=== PATIENT | female | born 1970 | race Two or more races ===

== ENCOUNTER → 2018-10-24 | Outpatient (CLI) | payer OTHER ==
[~2018-10-24] MED LIST: AMITRIPTYLINE H10 MG; AMITRIPTYLINE H10 MG PO; AMITRIPTYLINE H25 MG PO; COUMADIN2 MG; COUMADIN2 MG PO; IMODIUM A-D2 MG PO; LIDODERM30 EA TP; METOPROLOL SUCC25 MG; NEURONTIN PO; NEURONTIN300 MG; OXYCONTIN10 M1 PO; PEPCID20 MG PO; PEPCID40 MG PO; SENOKOT TAB1 TAB PO; TAMOXIFEN CITRA20 MG; TOPROL XL25 M1 PO; TRAM1TAB98 PO; ZOFRAN4 MG PO; ZOFRAN8 MG PO
== END | disposition home or self-care (01) ==
LOC: NUCLEAR 12:41
DX: I25.10 Atherosclerotic heart disease of native coronary artery without angina pectoris (principal); R79.89 Other specified abnormal findings of blood chemistry
CPT/HCPCS: 78472; 78496; A9560

== ENCOUNTER 2018-11-14 13:44 | Emergency (ER) | payer OTHER ==
[~2018-11-14] VITALS: Ht 167.6 cm; Wt 113.4 kg
== END 2018-11-14 17:55 | disposition home or self-care (01) ==
LOC: ER 13:44
DX: H53.8 Other visual disturbances (principal)

== ENCOUNTER 2019-06-13 14:30 | Outpatient (CLI) | payer OTHER | END 2019-06-13 14:35 | disposition home or self-care (01) | LOC: RAD 14:30 | DX: C79.51 Secondary malignant neoplasm of bone (principal) ==

== ENCOUNTER 2020-12-04 09:22 | Emergency (ER) | payer OTHER ==
[~2020-12-04] VITALS: Ht 162.6 cm; Wt 117.9 kg
[2020-12-04] MEDS ORDERED: PLAVIX75 MG (09:42)
[2020-12-04] MEDS ORDERED: LOSARTAN-HCTZ1 EACH (09:46)
[2020-12-04] MEDS ORDERED: FEMARA2.5 MG (09:46)
[2020-12-04] MEDS ORDERED: KISQALI1 EAC1 (09:47)
[2020-12-04] MEDS ORDERED: MUCINEX600 MG (09:50)
[2020-12-04] MEDS ORDERED: NEBUSAL4 M1 (09:51)
== END 2020-12-04 14:56 | disposition home or self-care (01) ==
LOC: ER 09:22
DX: J20.9 Acute bronchitis, unspecified (principal); Z03.818 Encounter for observation for suspected exposure to other biological agents ruled out

== ENCOUNTER → 2021-02-08 | Outpatient (CLI) | payer OTHER ==
[~2021-02-08] MED LIST changes: +FEMARA2.5 MG; +KISQALI1 EAC1; +LOSARTAN-HCTZ1 EACH; +MUCINEX600 MG; +NEBUSAL4 M1; +PLAVIX75 MG
== END | disposition home or self-care (01) ==
LOC: NUCLEAR 07:17
PROVIDERS: ATTEND Internal Medicine Hematology & Oncology
DX: C50.412 Malignant neoplasm of upper-outer quadrant of left female breast (principal); C79.51 Secondary malignant neoplasm of bone
CPT/HCPCS: 78815; A9552

== ENCOUNTER 2021-03-22 10:10 | Outpatient (CLI) | payer OTHER | END 2021-03-22 10:11 | disposition home or self-care (01) | LOC: NUCLEAR 10:10 | PROVIDERS: ATTEND Internal Medicine Cardiovascular Disease | DX: I50.1 Left ventricular failure, unspecified (principal) ==

== ENCOUNTER 2021-05-02 21:25 | Emergency (ER) | payer OTHER ==
[~2021-05-02] VITALS: Ht 167.6 cm; Wt 105.7 kg
[2021-05-02] MEDS ORDERED: TRAM1TAB98 (23:34)
[2021-05-02] MEDS ORDERED: ZOFRAN8 MG (23:35)
[2021-05-02] MEDS ORDERED: CANABIS (23:37)
[2021-05-03] MEDS ORDERED: MEDROLPACK PO (07:50)
== END 2021-05-03 08:14 | disposition home or self-care (01) ==
LOC: ER 21:25
DX: M54.50 Low back pain, unspecified (principal); D64.89 Other specified anemias; C79.9 Secondary malignant neoplasm of unspecified site

== ENCOUNTER 2021-05-19 04:49 | Day surgery (SDC) | payer OTHER ==
[~2021-05-19 04:49] MED LIST changes: +ACID CONTROLLER20 MG PO; +CANABIS; +MEDROLPACK PO; +NORFLEX PO; +TRAM1TAB98; +ZOFRAN8 MG
== END 2021-05-19 11:55 | disposition home or self-care (01) ==
LOC: CIR.AMB 04:49
PROVIDERS: ATTEND Specialist
DX: C70.0 Malignant neoplasm of cerebral meninges (principal); C79.51 Secondary malignant neoplasm of bone; Z20.822 Contact with and (suspected) exposure to COVID-19
CPT/HCPCS: 36561; C1751

== ENCOUNTER 2021-06-05 17:24 | Emergency (ER) | payer OTHER ==
[~2021-06-05] VITALS: Ht 167.6 cm; Wt 108.9 kg
== END 2021-06-05 20:11 | disposition home or self-care (01) ==
LOC: ER 17:24
DX: R10.9 Unspecified abdominal pain (principal); C79.51 Secondary malignant neoplasm of bone

== ENCOUNTER 2021-06-19 10:24 | Inpatient (IN) | payer OTHER ==
[~2021-06-19] VITALS: Ht 170.2 cm; Wt 104.3 kg
[2021-06-29] MEDS ORDERED: LOSARTAN-HCTZ1 EACH PO (10:15)
[2021-06-29] MEDS ORDERED: HYOSCYAMINE0.125 M1 SL (10:15)
[2021-06-29] MEDS ORDERED: NeuRONTin 400MG CAPS PO (10:16)
[2021-06-29] MEDS ORDERED: TOPROL XL25 M1 PO (10:16)
[2021-06-29] MEDS ORDERED: TRAMADOL HCL50 MG PO (10:17)
[2021-06-29] MEDS ORDERED: ACID CONTROLLER20 MG PO (10:18)
[2021-06-29] MEDS ORDERED: ZOFRAN8 MG PO (10:19)
== END 2021-06-29 11:35 | disposition home or self-care (01) | DRG 744 ==
LOC: ER 10:24 → SURH 17:17 → SURG 17:17 → SURH 06-21 22:08
PROVIDERS: Obstetrics & Gynecology; ADMIT Internal Medicine Hematology & Oncology; ATTEND Internal Medicine Hematology & Oncology
PROC: 30233N1 Transfusion of Nonautologous Red Blood Cells into Peripheral Vein, Percutaneous Approach (ICD-10-PCS; 2021-06-25)
PROC: 0UDB8ZX Extraction of Endometrium, Via Natural or Artificial Opening Endoscopic, Diagnostic (ICD-10-PCS; principal; 2021-06-27 09:30)
DX: N85.00 Endometrial hyperplasia, unspecified (principal); N85.8 Other specified noninflammatory disorders of uterus; C78.89 Secondary malignant neoplasm of other digestive organs; N39.0 Urinary tract infection, site not specified; D70.1 Agranulocytosis secondary to cancer chemotherapy; T45.1X5A Adverse effect of antineoplastic and immunosuppressive drugs, initial encounter; C78.7 Secondary malignant neoplasm of liver and intrahepatic bile duct; C79.51 Secondary malignant neoplasm of bone; D68.61 Antiphospholipid syndrome; N95.0 Postmenopausal bleeding; N93.8 Other specified abnormal uterine and vaginal bleeding; G89.3 Neoplasm related pain (acute) (chronic); D63.0 Anemia in neoplastic disease; C50.919 Malignant neoplasm of unspecified site of unspecified female breast; E86.0 Dehydration; I10 Essential (primary) hypertension; Z20.822 Contact with and (suspected) exposure to COVID-19

== ENCOUNTER 2021-10-27 14:38 | Emergency (ER) | payer OTHER ==
[~2021-10-27] VITALS: Ht 152.4 cm; Wt 104.3 kg
[~2021-10-27 14:38] MED LIST changes: +HYOSCYAMINE0.125 M1 SL; +LOSARTAN-HCTZ1 EACH PO; +NeuRONTin 400MG CAPS PO; +TRAMADOL HCL50 MG PO
== END 2021-10-27 19:57 | disposition home or self-care (01) ==
LOC: ER 14:38
DX: K29.70 Gastritis, unspecified, without bleeding (principal); E86.0 Dehydration; R19.7 Diarrhea, unspecified; R11.2 Nausea with vomiting, unspecified; Z85.3 Personal history of malignant neoplasm of breast; I10 Essential (primary) hypertension; Z88.0 Allergy status to penicillin; Z88.6 Allergy status to analgesic agent; Z88.8 Allergy status to other drugs, medicaments and biological substances

== ENCOUNTER 2021-11-11 09:59 | Outpatient (CLI) | payer OTHER | END 2021-11-11 10:25 | disposition home or self-care (01) | LOC: MAMO-SONO 09:59 | PROVIDERS: ATTEND Specialist | DX: C50.412 Malignant neoplasm of upper-outer quadrant of left female breast (principal); Z17.0 Estrogen receptor positive status [ER+]; C79.51 Secondary malignant neoplasm of bone ==

== ENCOUNTER 2022-02-13 10:43 | Outpatient (CLI) | payer OTHER | END 2022-02-13 10:53 | disposition home or self-care (01) | LOC: RAD 10:43 | PROVIDERS: ATTEND Internal Medicine Cardiovascular Disease | DX: R06.00 Dyspnea, unspecified (principal) ==

== ENCOUNTER 2022-03-11 05:58 | Emergency (ER) | payer OTHER ==
[~2022-03-11] VITALS: Ht 170.2 cm; Wt 109.8 kg
== END 2022-03-11 13:18 | disposition home or self-care (01) ==
LOC: ER 05:58
DX: M79.603 Pain in arm, unspecified (principal); R51.9 Headache, unspecified; R11.2 Nausea with vomiting, unspecified; Z85.3 Personal history of malignant neoplasm of breast; Z85.830 Personal history of malignant neoplasm of bone; Z88.6 Allergy status to analgesic agent; Z88.5 Allergy status to narcotic agent; Z88.0 Allergy status to penicillin; Z91.09 Other allergy status, other than to drugs and biological substances

== ENCOUNTER 2022-04-16 19:24 | Emergency (ER) | payer OTHER ==
[~2022-04-16] VITALS: Ht 172.7 cm; Wt 117.0 kg
== END 2022-04-17 00:15 | disposition home or self-care (01) ==
LOC: ER 19:24
DX: R51.9 Headache, unspecified (principal); Z88.0 Allergy status to penicillin; Z91.041 Radiographic dye allergy status; Z88.6 Allergy status to analgesic agent; R11.2 Nausea with vomiting, unspecified; Z85.9 Personal history of malignant neoplasm, unspecified

== ENCOUNTER 2022-04-26 07:36 | Outpatient (CLI) | payer OTHER | END 2022-04-26 07:39 | disposition home or self-care (01) | LOC: NUCLEAR 07:36 | PROVIDERS: ATTEND Internal Medicine Hematology & Oncology | DX: C50.412 Malignant neoplasm of upper-outer quadrant of left female breast (principal); C79.51 Secondary malignant neoplasm of bone; C78.7 Secondary malignant neoplasm of liver and intrahepatic bile duct; Z88.0 Allergy status to penicillin; Z88.6 Allergy status to analgesic agent; Z88.8 Allergy status to other drugs, medicaments and biological substances | CPT/HCPCS: 78816; A9552 ==

== ENCOUNTER → 2022-05-05 | Emergency (ER) | payer OTHER ==
[~2022-05-05] MED LIST changes: +LYRICA50 MG; +NORFLEX100MG PO
== END | disposition home or self-care (01) ==
LOC: ER 06:01
DX: K29.60 Other gastritis without bleeding (principal); E86.0 Dehydration; R10.9 Unspecified abdominal pain; Z88.6 Allergy status to analgesic agent; Z88.0 Allergy status to penicillin

== ENCOUNTER 2022-05-24 16:18 | Emergency (ER) | payer OTHER ==
[~2022-05-24] VITALS: Ht 160 cm; Wt 113.4 kg
[~2022-05-24 16:18] MED LIST changes: -LYRICA50 MG; -NORFLEX100MG PO
[2022-05-24] MEDS ORDERED: NORFLEX100MG PO (20:22)
== END 2022-05-24 21:16 | disposition home or self-care (01) ==
LOC: ER 16:18
DX: M54.2 Cervicalgia (principal); Z88.6 Allergy status to analgesic agent; Z88.0 Allergy status to penicillin; Z88.8 Allergy status to other drugs, medicaments and biological substances; I10 Essential (primary) hypertension

== ENCOUNTER 2022-05-26 19:11 | Emergency (ER) | payer OTHER ==
[~2022-05-26] VITALS: Ht 170.2 cm; Wt 113.4 kg
[~2022-05-26 19:11] MED LIST changes: +NORFLEX100MG PO
== END 2022-05-26 23:20 | disposition home or self-care (01) ==
LOC: ER 19:11
DX: G50.0 Trigeminal neuralgia (principal)

== ENCOUNTER 2022-05-30 02:22 | Emergency (ER) | payer OTHER ==
[~2022-05-30] VITALS: Ht 170.2 cm; Wt 113.4 kg
[2022-05-30] MEDS ORDERED: LYRICA50 MG (02:30)
== END 2022-05-30 04:24 | disposition home or self-care (01) ==
LOC: ER 02:22
DX: M54.12 Radiculopathy, cervical region (principal); Z85.9 Personal history of malignant neoplasm, unspecified; Z88.6 Allergy status to analgesic agent; Z91.041 Radiographic dye allergy status

== ENCOUNTER 2022-06-01 09:58 | Inpatient (IN) | payer OTHER ==
[~2022-06-01] VITALS: Ht 170.2 cm; Wt 113.4 kg
[~2022-06-01 09:58] MED LIST changes: +LYRICA50 MG
[2022-06-01] MEDS ORDERED: SUCRALFATE1 GM (16:00)
[2022-06-10] MEDS ORDERED: LOSARTAN-HCTZ1 EACH PO (13:30)
[2022-06-10] MEDS ORDERED: PAIN RELIEVER500 M2 PO (13:31)
[2022-06-10] MEDS ORDERED: TOPROL XL25 M1 PO (13:31)
[2022-06-10] MEDS ORDERED: GABAPENTIN800 MG PO (13:31)
[2022-06-10] MEDS ORDERED: ACID CONTROLLER20 MG PO (13:32)
[2022-06-10] MEDS ORDERED: POLY119PG PO (13:33)
[2022-06-10] MEDS ORDERED: DEXAMETHASONE4 MG PO (13:34)
[2022-06-10] MEDS ORDERED: ZOFRAN8 MG PO (13:35)
== END 2022-06-10 22:24 | disposition home or self-care (01) | DRG 948 ==
LOC: SURH 09:58 → SEC-K 09:58 → SURH 06-02 01:03
PROVIDERS: Anesthesiology Pain Medicine; ADMIT Internal Medicine Hematology & Oncology; ATTEND Internal Medicine Hematology & Oncology
PROC: BR30ZZZ Magnetic Resonance Imaging (MRI) of Cervical Spine (ICD-10-PCS; 2022-06-01)
PROC: B030ZZZ Magnetic Resonance Imaging (MRI) of Brain (ICD-10-PCS; 2022-06-01)
PROC: 009U3ZX Drainage of Spinal Canal, Percutaneous Approach, Diagnostic (ICD-10-PCS; principal; 2022-06-02 20:00)
DX: G89.3 Neoplasm related pain (acute) (chronic) (principal); C79.32 Secondary malignant neoplasm of cerebral meninges; C79.51 Secondary malignant neoplasm of bone; C78.7 Secondary malignant neoplasm of liver and intrahepatic bile duct; D68.59 Other primary thrombophilia; C50.412 Malignant neoplasm of upper-outer quadrant of left female breast; R51.9 Headache, unspecified; M54.2 Cervicalgia; M54.89 Other dorsalgia; D63.0 Anemia in neoplastic disease; G62.9 Polyneuropathy, unspecified; M54.12 Radiculopathy, cervical region; M48.02 Spinal stenosis, cervical region; I10 Essential (primary) hypertension; F41.8 Other specified anxiety disorders; Z20.822 Contact with and (suspected) exposure to COVID-19
CPT/HCPCS: 70544; 70545; 72141

== ENCOUNTER 2022-07-25 19:59 | Inpatient (IN) | payer OTHER ==
[~2022-07-25] VITALS: Ht 152.4 cm; Wt 113.4 kg
[~2022-07-25 19:59] MED LIST changes: +DEXAMETHASONE4 MG PO; +GABAPENTIN800 MG PO; +PAIN RELIEVER500 M2 PO; +POLY119PG PO; +SUCRALFATE1 GM
[2022-08-03] MEDS ORDERED: COZAAR50 MG PO (09:19)
[2022-08-03] MEDS ORDERED: TOPROL XL25 M1 PO (09:20)
[2022-08-03] MEDS ORDERED: SERTRALINE HCL50 MG PO (09:21)
[2022-08-03] MEDS ORDERED: KEPPRA500 MG PO (09:21)
[2022-08-03] MEDS ORDERED: ZOFRAN8 MG PO (09:22)
[2022-08-03] MEDS ORDERED: RESTORIL15 MG PO (09:22)
[2022-08-03] MEDS ORDERED: ACID CONTROLLER20 MG PO (09:22)
[2022-08-03] MEDS ORDERED: POLY119PG PO (09:22)
[2022-08-03] MEDS ORDERED: DEXAMETHASONE4 MG PO (09:23)
[2022-08-03] MEDS ORDERED: PROTEINEX-18 LI30 ML PO (09:24)
== END 2022-08-03 09:44 | disposition home or self-care (01) | DRG 100 ==
LOC: ER 19:59 → ICU-2 21:28 → MEDI 07-26 22:04 → MEDJ 07-27 00:34
PROVIDERS: ADMIT Internal Medicine Hematology & Oncology; ATTEND Internal Medicine Hematology & Oncology
PROC: 5A1935Z Respiratory Ventilation, Less than 24 Consecutive Hours (ICD-10-PCS; principal; 2022-07-25)
PROC: 02HV33Z Insertion of Infusion Device into Superior Vena Cava, Percutaneous Approach (ICD-10-PCS; 2022-07-25)
PROC: BW28ZZZ Computerized Tomography (CT Scan) of Head (ICD-10-PCS; 2022-07-25)
PROC: BW38ZZZ Magnetic Resonance Imaging (MRI) of Head (ICD-10-PCS; 2022-07-27)
PROC: 4A12X4Z Monitoring of Cardiac Electrical Activity, External Approach (ICD-10-PCS; 2022-07-27)
PROC: 02WY33Z Revision of Infusion Device in Great Vessel, Percutaneous Approach (ICD-10-PCS; 2022-07-30)
DX: G40.901 Epilepsy, unspecified, not intractable, with status epilepticus (principal); G93.6 Cerebral edema; J96.90 Respiratory failure, unspecified, unspecified whether with hypoxia or hypercapnia; C50.919 Malignant neoplasm of unspecified site of unspecified female breast; E09.9 Drug or chemical induced diabetes mellitus without complications; T38.0X5A Adverse effect of glucocorticoids and synthetic analogues, initial encounter; Z79.84 Long term (current) use of oral hypoglycemic drugs; F32.9 Major depressive disorder, single episode, unspecified; F43.20 Adjustment disorder, unspecified; R32 Unspecified urinary incontinence; G47.33 Obstructive sleep apnea (adult) (pediatric); E66.01 Morbid (severe) obesity due to excess calories; Z68.38 Body mass index [BMI] 38.0-38.9, adult
CPT/HCPCS: 70552

== ENCOUNTER 2022-08-12 18:05 | Emergency (ER) | payer OTHER ==
[~2022-08-12] VITALS: Ht 172.7 cm; Wt 108.9 kg
[~2022-08-12 18:05] MED LIST changes: +COZAAR50 MG PO; +KEPPRA500 MG PO; +PROTEINEX-18 LI30 ML PO; +RESTORIL15 MG PO; +SERTRALINE HCL50 MG PO
== END 2022-08-12 21:23 | disposition home or self-care (01) ==
LOC: ER 18:05
DX: M89.8X9 Other specified disorders of bone, unspecified site (principal); D09.8 Carcinoma in situ of other specified sites; Z88.6 Allergy status to analgesic agent; Z88.0 Allergy status to penicillin; Z88.8 Allergy status to other drugs, medicaments and biological substances

== ENCOUNTER → 2022-08-19 | Emergency (ER) | payer OTHER ==
[~2022-08-19] VITALS: Ht 172.7 cm; Wt 111.1 kg
[~2022-08-19] MED LIST changes: +DICYCLOMIN10 MG/5 M1; +GABAPENTIN800 M1 PO; +PLAVIX75 MG PO; +SERTRALINE20 MG/1 ML PO
== END | disposition home or self-care (01) ==
LOC: ER 15:28
DX: M89.8X0 Other specified disorders of bone, multiple sites (principal); Z85.3 Personal history of malignant neoplasm of breast; Z88.6 Allergy status to analgesic agent; Z88.0 Allergy status to penicillin; Z88.8 Allergy status to other drugs, medicaments and biological substances; E11.9 Type 2 diabetes mellitus without complications; I10 Essential (primary) hypertension

== ENCOUNTER 2022-09-20 19:01 | Emergency (ER) | payer OTHER ==
[~2022-09-20] VITALS: Ht 167.6 cm; Wt 95.3 kg
[2022-09-20] MEDS ORDERED: MORPHINE PO (19:20)
== END 2022-09-20 22:33 | disposition home or self-care (01) ==
LOC: ER 19:01
DX: M54.2 Cervicalgia (principal); Z88.6 Allergy status to analgesic agent; Z88.0 Allergy status to penicillin; Z88.8 Allergy status to other drugs, medicaments and biological substances

== ENCOUNTER 2022-09-29 08:39 | Emergency (ER) | payer OTHER ==
[~2022-09-29] VITALS: Ht 172.7 cm; Wt 112.5 kg
[~2022-09-29 08:39] MED LIST changes: +MORPHINE PO
== END 2022-09-29 14:55 | disposition home or self-care (01) ==
LOC: ER 08:39
DX: M50.10 Cervical disc disorder with radiculopathy, unspecified cervical region (principal); Z88.0 Allergy status to penicillin; Z91.041 Radiographic dye allergy status; Z88.6 Allergy status to analgesic agent; Z88.8 Allergy status to other drugs, medicaments and biological substances

== ENCOUNTER 2022-10-14 19:45 | Emergency (ER) | payer OTHER ==
[~2022-10-14] VITALS: Ht 172.7 cm; Wt 108.9 kg
== END 2022-10-14 23:31 | disposition home or self-care (01) ==
LOC: ER 19:45
DX: M54.2 Cervicalgia (principal); R51.9 Headache, unspecified; Z91.041 Radiographic dye allergy status; Z88.6 Allergy status to analgesic agent; Z88.0 Allergy status to penicillin; Z85.3 Personal history of malignant neoplasm of breast

== ENCOUNTER 2022-10-23 08:09 | Inpatient (IN) | payer OTHER ==
[~2022-10-23] VITALS: Ht 172.7 cm; Wt 108.9 kg
--- NOTE | 2022-10-23 08:19 | NUR ---
SE RECIBE PTE ALERTA Y ORIENTADO X3 PTE REFIERE DOLOR ABD Y VOMITOS CONTIUOS, NAVA DR. HILDA CABRAL. PTE RERIERE QUE ES PTE DE CANCER EL [place] (METASTAT[place]). PTE REFIERE QUE LLEVA 3 BUCIO CON LOS SINTOMAS Y REFIERE DEBILIDAD SE REALIZA LA ROXY DE DEXTRO 145. SE ORTEGA VITALES Y SE TAMERA EN OBSERVACION.
--- NOTE | 2022-10-23 09:23 | NUR ---
SE ORIENTA PTE SOBRE EL TRATAMIENTO ORDEANDO POR LA JANES WOODARD PTE ALERTA Y ORIENTADO POR 3 RN Y.EVELIN REALIZA MUESTRAS DE LABORATORIO Y SE ADMINISTRAN MEDICAMENTO LILLI ORDEANDO PTE SE MANTIENE EN OBSERVACION Y BAJO TRATAMIENTO.
[2022-10-24] MEDS ORDERED: SERTRALINE HCL50 MG (08:57)
[2022-10-24] MEDS ORDERED: FAMOTIDINE20 MG (08:58)
[2022-10-24] MEDS ORDERED: AMITRIPTYLINE H25 MG (08:58)
[2022-10-24] MEDS ORDERED: HUMULIN N100 UNIT/2 (08:58)
[2022-10-24] MEDS ORDERED: ADMELOG100 UNIT/1 (08:58)
[2022-10-28] MEDS ORDERED: PLAVIX75 MG PO (16:07)
[2022-10-28] MEDS ORDERED: TOPROL XL25 M1 PO (16:07)
[2022-10-28] MEDS ORDERED: COZAAR50 MG PO (16:07)
[2022-10-28] MEDS ORDERED: KEPPRA500 MG PO (16:08)
[2022-10-28] MEDS ORDERED: GABAPENTIN250 MG/5 M PO (16:08)
[2022-10-28] MEDS ORDERED: DOCUSATE SODIU100 MG PO (16:09)
[2022-10-28] MEDS ORDERED: SERTRALINE HCL50 MG PO (16:09)
[2022-10-28] MEDS ORDERED: FAMOTIDINE20 MG PO (16:10)
[2022-10-28] MEDS ORDERED: LEVOFLOXACIN500 MG PO (16:12)
== END 2022-10-29 09:16 | disposition home or self-care (01) | DRG 690 ==
LOC: ER 08:09 → SURH 18:56
PROVIDERS: ADMIT Internal Medicine Hematology & Oncology; ATTEND Internal Medicine Hematology & Oncology
PROC: 30233N1 Transfusion of Nonautologous Red Blood Cells into Peripheral Vein, Percutaneous Approach (ICD-10-PCS; principal; 2022-10-25)
PROC: 05HY33Z Insertion of Infusion Device into Upper Vein, Percutaneous Approach (ICD-10-PCS; 2022-10-25)
DX: N39.0 Urinary tract infection, site not specified (principal); C78.7 Secondary malignant neoplasm of liver and intrahepatic bile duct; C41.9 Malignant neoplasm of bone and articular cartilage, unspecified; K29.00 Acute gastritis without bleeding; D64.9 Anemia, unspecified; D69.6 Thrombocytopenia, unspecified; C50.919 Malignant neoplasm of unspecified site of unspecified female breast; E09.9 Drug or chemical induced diabetes mellitus without complications; Z79.4 Long term (current) use of insulin; T38.0X5A Adverse effect of glucocorticoids and synthetic analogues, initial encounter

== ENCOUNTER 2022-11-11 09:12 | Emergency (ER) | payer OTHER ==
[~2022-11-11] VITALS: Ht 172.7 cm; Wt 108.9 kg
[~2022-11-11 09:12] MED LIST changes: +ADMELOG100 UNIT/1; +AMITRIPTYLINE H25 MG; +DOCUSATE SODIU100 MG PO; +FAMOTIDINE20 MG; +FAMOTIDINE20 MG PO; +GABAPENTIN250 MG/5 M PO; +HUMULIN N100 UNIT/2; +LEVOFLOXACIN500 MG PO; +SERTRALINE HCL50 MG
== END 2022-11-11 16:22 | disposition home or self-care (01) ==
LOC: ER 09:12
DX: E11.9 Type 2 diabetes mellitus without complications (principal); R00.0 Tachycardia, unspecified; Z20.822 Contact with and (suspected) exposure to COVID-19

== ENCOUNTER 2022-11-18 06:56 | Inpatient (IN) | payer OTHER ==
[~2022-11-18] VITALS: Ht 152.4 cm; Wt 86.2 kg
[2022-11-20] MEDS ORDERED: AMITRIPTYLINE H25 MG (15:11)
[2022-11-20] MEDS ORDERED: GABAPENTIN300 M2 (15:11)
[2022-11-20] MEDS ORDERED: HUMULIN N100 UNIT/2 (15:11)
[2022-11-20] MEDS ORDERED: SUCRALFATE1 GM (15:11)
== END 2022-11-25 20:27 | disposition home or self-care (01) | DRG 690 ==
LOC: ER 06:56 → MEDJ 19:06
PROVIDERS: ADMIT Specialist; ATTEND Specialist
PROC: BW21ZZZ Computerized Tomography (CT Scan) of Abdomen and Pelvis (ICD-10-PCS; principal; 2022-11-18)
PROC: B246ZZ3 Ultrasonography of Right and Left Heart, Intravascular (ICD-10-PCS; 2022-11-18)
PROC: 4A12X4Z Monitoring of Cardiac Electrical Activity, External Approach (ICD-10-PCS; 2022-11-18)
PROC: 3E0F7SF Introduction of Other Gas into Respiratory Tract, Via Natural or Artificial Opening (ICD-10-PCS; 2022-11-18)
PROC: 3E0F7GC Introduction of Other Therapeutic Substance into Respiratory Tract, Via Natural or Artificial Opening (ICD-10-PCS; 2022-11-18)
DX: N39.0 Urinary tract infection, site not specified (principal); J90 Pleural effusion, not elsewhere classified; C79.81 Secondary malignant neoplasm of breast; C78.7 Secondary malignant neoplasm of liver and intrahepatic bile duct; C79.51 Secondary malignant neoplasm of bone; D68.59 Other primary thrombophilia; D68.61 Antiphospholipid syndrome; K29.00 Acute gastritis without bleeding; E86.0 Dehydration; G89.3 Neoplasm related pain (acute) (chronic); M79.651 Pain in right thigh; M54.59 Other low back pain; M54.2 Cervicalgia; R00.0 Tachycardia, unspecified; E87.6 Hypokalemia; I10 Essential (primary) hypertension; Z74.01 Bed confinement status; Z92.21 Personal history of antineoplastic chemotherapy

== ENCOUNTER 2022-11-30 07:35 | Emergency (ER) | payer OTHER ==
[~2022-11-30] VITALS: Ht 172.7 cm; Wt 108.9 kg
[~2022-11-30 07:35] MED LIST changes: +GABAPENTIN300 M2
== END 2022-11-30 09:20 | disposition home or self-care (01) ==
LOC: ER 07:35
DX: M62.830 Muscle spasm of back (principal); Z88.6 Allergy status to analgesic agent; Z88.0 Allergy status to penicillin; Z88.8 Allergy status to other drugs, medicaments and biological substances

== ENCOUNTER 2022-12-20 09:01 | Inpatient (IN) | payer OTHER ==
[~2022-12-20] VITALS: Ht 167.6 cm; Wt 104.3 kg
[2022-12-21] MEDS ORDERED: GABAPENTIN300 M2 (14:48)
[2022-12-21] MEDS ORDERED: SERTRALINE HCL50 MG (14:48)
[2022-12-21] MEDS ORDERED: AMITRIPTYLINE H25 MG (14:48)
[2022-12-21] MEDS ORDERED: LIDOCAINE1 EACH (14:48)
[2022-12-27] MEDS ORDERED: HYOSCYAMINE0.125 M1 SL (18:00)
[2022-12-27] MEDS ORDERED: KEPPRA500 MG PO (18:01)
[2022-12-27] MEDS ORDERED: DOCUSATE SODIU100 MG PO (18:02)
[2022-12-27] MEDS ORDERED: FAMOTIDINE20 MG PO (18:02)
[2022-12-27] MEDS ORDERED: CARAFATE1 GM PO (18:03)
[2022-12-27] MEDS ORDERED: MEGESTROL400 MG/11 PO (18:04)
[2022-12-27] MEDS ORDERED: TOPROL XL25 M1 PO (18:06)
[2022-12-27] MEDS ORDERED: MSIR15 MG PO (18:09)
== END 2022-12-27 19:29 | disposition home or self-care (01) | DRG 812 ==
LOC: ER 09:01 → MEDJ 21:18 → SEC-K 21:18 → MEDJ 21:26
PROVIDERS: General Practice; ADMIT Internal Medicine Hematology & Oncology; ATTEND Internal Medicine Hematology & Oncology
PROC: BW21ZZZ Computerized Tomography (CT Scan) of Abdomen and Pelvis (ICD-10-PCS; 2022-12-20)
PROC: 30233N1 Transfusion of Nonautologous Red Blood Cells into Peripheral Vein, Percutaneous Approach (ICD-10-PCS; principal; 2022-12-21)
PROC: 4A12X4Z Monitoring of Cardiac Electrical Activity, External Approach (ICD-10-PCS; 2022-12-21)
DX: D64.89 Other specified anemias (principal); N39.0 Urinary tract infection, site not specified; C79.81 Secondary malignant neoplasm of breast; C78.7 Secondary malignant neoplasm of liver and intrahepatic bile duct; C79.51 Secondary malignant neoplasm of bone; C80.0 Disseminated malignant neoplasm, unspecified; D68.69 Other thrombophilia; D63.0 Anemia in neoplastic disease; D69.6 Thrombocytopenia, unspecified; N95.0 Postmenopausal bleeding; E86.0 Dehydration; K59.09 Other constipation; I10 Essential (primary) hypertension; Z74.01 Bed confinement status; Z92.21 Personal history of antineoplastic chemotherapy